=== PATIENT | female | born 1950 | race Caucasian/White ===

== ENCOUNTER 2017-07-16 07:05 | Emergency (ER) | payer OTHER ==
[2017-07-16 07:35] VITALS: BP 147/72
--- NOTE | 2017-07-16 08:09 | UC ---
Complaint Female HPI - HPI Summary HPI Summary: patient states she had intercourse yesterday and experienced scant vaginal bleeding this morning which resolved by itself. States it is not painful but has short lived "twinges". Denies any discharge. Denies history of STD. She had MOOSE in 2002. Currently on Xarelto for Afib, denies epistaxis, although she has occasional bruises. - History Of Current Complaint Chief Complaint: UCGU Stated Complaint: PERSONAL Time Seen by Provider: 07/16/17 07:44 Hx Obtained From: Patient ?: No Onset/Duration: Sudden Onset, Lasting Days Timing: Intermittent Severity Initially: Mild Severity Currently: Mild Pain Intensity: 2 Character: Not Applicable Aggravating Factor(s): [place] Alleviating Factor(s): Nothing Associated Signs And Symptoms: Positive: Negative - Risk Factors Ectopic Risk Factor: Negative Ovarian Torsion Risk Factor: Negative - Allergies/Home Medications Allergies/Adverse Reactions: Allergies Allergy/AdvReac Type Severity Reaction Status Date / Time MS Amoxicillin Allergy Unknown Verified 07/16/17 07:18 [From Augmentin] Reaction Details MS Atorvastatin Allergy Unknown Verified 07/16/17 07:18 [From Lipitor] Reaction Details MS Cefaclor [From Ceclor] Allergy Unknown Verified 07/16/17 07:18 Reaction Details MS Clarithromycin Allergy Unknown Verified 07/16/17 07:18 [From Biaxin] Reaction Details MS Clavulanic Acid Allergy Unknown Verified 07/16/17 07:18 [From Augmentin] Reaction Details MS Erythromycin Allergy Unknown Verified 07/16/17 07:18 [Erythromycin] Reaction Details MS Loratadine [From Claritin] Allergy Unknown Verified 07/16/17 07:18 Reaction Details MS Losartan [From Cozaar] Allergy Unknown Verified 07/16/17 07:18 Reaction Details MS Pseudoephedrine AdvReac Hallucinati Verified 07/16/17 07:18 [From Sudafed] ons Home Medications: Home Medications Flecainide TAB(NF) 1 tab PO TID 07/16/17 [History Confirmed 07/16/17] PMH/Surg Hx/FS Hx/Imm Hx Previously Healthy: Yes Endocrine History: Hypothyroidism, Dyslipidemia Cardiovascular History: Cardiac Disease, Hypertension, Atrial Fibrillation - Surgical History Surgical History: Yes Surgery Procedure, Year, and Place: 2008 THYROIDECTOMY. 2002 HYSTERECTOMY. 2007 [facility] - Family History Known Family History: Positive: Cardiac Disease - Mother, father - Social History Alcohol Use: None Substance Use Type: None Smoking Status (MU): Never Smoked Tobacco Have You Smoked in the Last Year: No - Immunization History Most Recent Influenza Vaccination: fall 2013 Most Recent Tetanus Shot: unknown Most Recent Pneumonia Vaccination: received, unknown Review of Systems Constitutional: Negative Genitourinary: Vaginal/Penile Pain All Other Systems Reviewed And Are Negative: Yes Physical Exam Triage Information Reviewed: Yes Appearance: Well-Appearing Vital Signs: Initial Vital Signs Temp 98.3 F 07/16/17 07:22 Pulse 59 07/16/17 07:22 Resp 16 07/16/17 07:22 BP 147/72 07/16/17 07:22 Pulse Ox 100 07/16/17 07:22 Vital Signs Reviewed: Yes Eyes: Positive: Conjunctiva Clear ENT: Positive: Hearing grossly normal Respiratory: Positive: No respiratory distress Cardiovascular: Positive: Pulses Normal, Brisk Capillary Refill Pelvic Exam: Positive: Speculum Exam Normal, Bimanual Exam Normal, No Masses, Other - small symmetrical abrasions approx 3mm in diameter on supero anterior aspect of both labia minora Complaint Female Dx - Course Course Of Treatment: abrasion found in labia minora, BATH STEWARD exam otherwise normal. Use of lubrication during intercourse d/w patient. - Differential Dx/Diagnosis Provider Diagnoses: Abrasion genitalia Discharge - Sign-Out/Discharge Documenting (check all that apply): Discharge/Admit/Transfer - Discharge Plan Condition: Good Disposition: HOME Patient Education Materials: Abrasion (ED) Referrals: Jan Terry MD [Primary Care Provider] - - Billing Disposition and Condition Condition: GOOD Disposition: HOME
== END 2017-07-16 08:12 | disposition home or self-care (01) ==
LOC: UCEAST 07:05
DX: S30.814A Abrasion of vagina and vulva, initial encounter (principal); X58.XXXA Exposure to other specified factors, initial encounter; Y93.89 Activity, other specified; Y92.9 Unspecified place or not applicable; E03.9 Hypothyroidism, unspecified; E78.5 Hyperlipidemia, unspecified; I48.91 Unspecified atrial fibrillation; Z79.01 Long term (current) use of anticoagulants; I10 Essential (primary) hypertension; Z95.0 Presence of cardiac pacemaker; Z90.710 Acquired absence of both cervix and uterus; Z88.1 Allergy status to other antibiotic agents; Z88.0 Allergy status to penicillin; Z88.8 Allergy status to other drugs, medicaments and biological substances
CPT/HCPCS: 99212; G0463

== ENCOUNTER 2017-09-09 23:27 | Observation (INO) | payer OTHER ==
--- NOTE | 2017-09-10 01:23 | ED ---
HPI Chest Pain - HPI Summary HPI Summary: Patient is a 67-year-old female with a pacemaker and a history of atrial fibrillation presents to the ED from [facility] with an episode of atrial fibrillation with RVR. Currently on amlodipine, metoprolol, Atacand and xarelto. 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 She endorses sharp pain to the left side of her anterior chest wall with associated shortness of breath. This improved until about one hour later when she began to feel ill, episode of diarrhea, nausea, vomiting, left sided chest pain returned with radiation to the left arm. She was started on an amiodarone drip at [place] and transferred here to the ED. Dr. Moran made aware of patient. On arrival she is in NSR and appears to be in no acute distress. He is asymptomatic on arrival. - History of Current Complaint Chief Complaint: EDGeneral Time Seen by Provider: 09/09/17 23:33 Hx Obtained From: Patient Onset/Duration: Started Hours Ago Timing: Constant Initial Severity: Moderate Current Severity: None Pain Intensity: 0 Pain Scale Used: 0-10 Numeric Chest Pain Location: Left Anterior Chest Pain Radiates: No Chest Pain Radiates To:: Shoulder, Arm Character: Sharp/Stabbing Aggravating Factor(s): Nothing Alleviating Factor(s): Nothing Associated Signs and Symptoms: Positive: Chest Pain - Risk Factors Pulmonary Embolism Risk Factors: Negative TAD Risk Factors: Negative - Additional Pertinent History Primary Care Physician: [id number] - Allergy/Home Medications Allergies/Adverse Reactions: Allergies Allergy/AdvReac Type Severity Reaction Status Date / Time amoxicillin [From Augmentin] Allergy Unknown Verified 09/10/17 02:30 Reaction Details atorvastatin [From Lipitor] Allergy Unknown Verified 09/10/17 02:30 Reaction Details cefaclor Allergy Unknown Verified 09/10/17 02:30 Reaction Details clarithromycin Allergy Unknown Verified 09/10/17 02:30 Reaction Details clavulanic acid Allergy Unknown Verified 09/10/17 02:30 [From Augmentin] Reaction Details erythromycin base Allergy Unknown Verified 09/10/17 02:30 Reaction Details losartan Allergy Unknown Verified 09/10/17 02:30 Reaction Details pseudoephedrine Allergy Hallucinati Verified 09/10/17 02:30 ons Home Medications: Home Medications Calcium Carbonate [Calcium Antacid] 430 mg PO 1800 09/10/17 [History Confirmed 09/10/17] Omeprazole CAP* [Prilosec CAP* 20 MG] 20 mg PO DAILY 09/10/17 [History Confirmed 09/10/17] PMH/Surg Hx/FS Hx/Imm Hx Previously Healthy: Yes Endocrine/Hematology History: Reports: Hx Thyroid Disease - CANCER Denies: Hx Diabetes Cardiovascular History: Reports: Hx Angina, Hx Hypercholesterolemia, Hx Hypertension, Hx Pacemaker/ICD, Other Cardiovascular Problems/Disorders - pacer Respiratory History: Reports: Hx Asthma Denies: Hx Chronic Obstructive Pulmonary Disease (COPD) GI History: Reports: Other GI Disorders - chronic diarrhea Denies: Hx Ulcer Sensory History: Reports: Hx Contacts or Glasses Opthamlomology History: Reports: Hx Contacts or Glasses - Cancer History Cancer Type, Location and Year: THYROID - 2008 Hx Chemotherapy: No Hx Radiation Therapy: Yes - THYROID - Surgical History Surgery Procedure, Year, and Place: 2008 THYROIDECTOMY. 2002 HYSTERECTOMY. 2007 [facility] - Immunization History Date of Tetanus Vaccine: NOT SURE Date of Influenza Vaccine: 2013 Hx Pertussis Vaccination: No Immunizations Up to Date: Unable to Obtain/Confirm Infectious Disease History: No Infectious Disease History: Reports: Hx Shingles Denies: Hx Clostridium Difficile, Hx Hepatitis, Hx Human Immunodeficiency Virus (HIV), Hx of Known/Suspected MRSA, Hx Tuberculosis, Hx Known/Suspected VRE , Hx Known/Suspected VRSA, History Other Infectious Disease, Traveled Outside the [place] in Last 30 Days - Family History Known Family History: Positive: Cardiac Disease - Mother, father - Social History Occupation: Unemployed Lives: With Family Alcohol Use: None Hx Substance Use: No Substance Use Type: Reports: None Hx Tobacco Use: No Smoking Status (MU): Never Smoked Tobacco Have You Smoked in the Last Year: No Review of Systems Constitutional: Negative Negative: Fever, Chills, Fatigue, Skin Diaphoresis Negative: Photophobia, Blurred Vision, Diplopia, Drainage Positive: Chest Pain Negative: Shortness Of Breath, Cough Negative: Abdominal Pain, Vomiting, Diarrhea, Nausea Musculoskeletal: Negative Skin: Negative Neurological: Negative Negative: Headache, Weakness, Paresthesia, Numbness All Other Systems Reviewed And Are Negative: Yes Physical Exam Triage Information Reviewed: Yes Vital Signs On Initial Exam: Initial Vitals Pulse Resp Pulse Ox 60 15 98 09/09/17 23:36 09/09/17 23:36 09/09/17 23:36 Vital Signs Reviewed: Yes Appearance: Positive: Well-Appearing, Well-Nourished Skin: Positive: Warm, Skin Color Reflects Adequate Perfusion Head/Face: Positive: Normal Head/Face Inspection Eyes: Positive: EOMI, Conjunctiva Clear Neck: Positive: Supple, No Lymphadenopathy Respiratory/Lung Sounds: Positive: Clear to Auscultation, Breath Sounds Present Cardiovascular: Positive: RRR - atrial paced rhythm, Pulses are Symmetrical in both Upper and Lower Extremities Musculoskeletal: Positive: Strength/ROM Intact Neurological: Positive: Alert, Oriented to Person Place, Time, Speech Normal Psychiatric: Positive: Affect/Mood Appropriate AVPU Assessment: Alert Diagnostics - Vital Signs Vital Signs Temp Pulse Resp BP Pulse Ox 09/10/17 00:00 60 13 96 09/09/17 23:40 98.3 F 60 18 147/50 96 09/09/17 23:37 61 19 147/50 98 09/09/17 23:36 60 15 98 - Laboratory Result Diagrams: 09/10/17 04:47 09/10/17 00:57 Lab Statement: Any lab studies that have been ordered have been reviewed, and results considered in the medical decision making process. Chest Pain Course/Dx - Course Course Of Treatment: During the course of treatment, EKG was obtained on arrival. EKG shows normal sinus rhythm. Troponin obtained. Labs are unremarkable. Discussed the case with the hospitalist. Amiodarone drip continued. Hospitalist agrees to come see patient in the ED. - Diagnoses Provider Diagnoses: Atrial fibrillation with RVR Discharge - Sign-Out/Discharge Documenting (check all that apply): Discharge/Admit/Transfer - Discharge Plan Condition: Fair Disposition: ADMITTED TO [facility] - Billing Disposition and Condition Condition: FAIR Disposition: Admitted to [facility]
[2017-09-10] MEDS ORDERED: Acetaminophen TAB* 325 MG PO PRN (02:39)
[2017-09-10] MEDS ORDERED: NS 0.9% 1000 ML* 1,000 ML IV SCH (02:45)
[2017-09-10] MEDS ORDERED: Amiodarone 360 MG IVPREMIX* 360 MG/200 ML BAG IV SCH (03:00)
[2017-09-10] MEDS ORDERED: Levothyroxine TAB* 25 MCG TAB PO SCH ×3 (05:00→06:00)
[2017-09-10] MEDS ORDERED: Levothyroxine TAB* 50 MCG TAB PO SCH (05:00)
[2017-09-10 05:01] LABS: ABS Basophils 0.1 10^3/ul (0-0.2); ABS Eosinophils 0.1 10^3/ul (0-0.6); ABS Monocytes 0.6 10^3/ul (0-0.8); ABS Neutrophils 5.9 10^3/ul (1.5-7.7); ABS Nucleated RBC 0 10^3/ul; Eosinophil % 0.6 % (0-6); Hematocrit 42 % (35-47); Hemoglobin 14.4 g/dl (12.0-16.0); Lymphocyte % 31.1 % (25-47); Mean Corpuscular HGB Conc 35 g/dl (31-36); Mean Corpuscular Hemoglobin 32 pg (27-31); Mean Corpuscular Volume 93 fL (80-97); Nucleated Red Blood Cells % 0; Platelet Count 187 10^3/ul (150-450); Red Blood Count 4.48 10^6/ul (4.00-5.40); Red Cell Distribution Width 13 % (10.5-15); White Blood Count 9.6 10^3/ul (3.5-10.8)
[2017-09-10 05:03] LABS: EGFR Non-African American 74.8 (>60)
[2017-09-10] MEDS ORDERED: Flecainide TAB* 100 MG PO SCH ×2 (06:00→18:00)
[2017-09-10] MEDS ORDERED: Metoprolol Tartrate TAB* 50 mg PO SCH ×2 (06:00→12:00)
--- NOTE | 2017-09-10 08:19 | HP ---
CC: Dr. Terry; Dr. Overton; Dr. Dumont * HISTORY AND PHYSICAL: DATE OF ADMISSION: 09/10/17. PRIMARY CARE PROVIDER: Dr. Terry. GINNING OPERATOR: Dr. Overton. HOLLOW WARE MAKER: Dr. Dumont. CHIEF COMPLAINT: Chest pain and arrhythmia. HISTORY OF PRESENT ILLNESS: Ms. Bolivar is a 67-year-old female, who has a history of paroxysmal atrial fibrillation, hypothyroidism, status post total thyroidectomy for thyroid cancer, hypertension, hyperlipidemia, and GERD, who initially presented to [facility] with complaints of chest pain. The patient states that she was at [facility] on the day prior to admission visiting with her son and grandchildren when she suddenly developed a sharp left-sided chest pain. She states that this was under her left breast. She states that it was there for a matter of seconds and then was gone. Following the chest pain, she did feel slightly short of breath for a little while. She sat down on the bench. When the shortness of breath went away, she got up to walk and felt like that she had to go to the bathroom. She tried to go and was unable to do so. She at approximately 6:15 p.m. on the day prior to admission did report an episode of loose stool. She subsequently had another episode of loose stool shortly thereafter. She also felt somewhat dizzy, had dry heaves, and felt tired. The patient indicates that when she is out in the sun, she will frequently get symptoms such as the diarrhea, dizziness, and nausea; however, because she had the sharp pain, she decided to present to the emergency room. While at [facility], the patient did also have an episode of burning chest discomfort under the left breast and in the left arm. This resolved within a matter of at most 5 minutes. Also at [facility], the patient was noted to be having runs of a wide complex tachycardia. This appeared to be a paced rhythm. The concern was for a ventricular tachycardia and because of that Dr. Moran was contacted, and the patient was ultimately transferred to [facility] for evaluation. The patient states that to some extent, symptoms she was feeling on the day prior to admission felt like it does when she goes into atrial fibrillation. PAST MEDICAL HISTORY: 1. Paroxysmal atrial fibrillation. 2. History of thyroid cancer. 3. Hypothyroidism, status post thyroidectomy. 4. Hypertension. 5. Hyperlipidemia. 6. Loya's esophagus. 7. JOSE - not treated. PAST SURGICAL HISTORY: 1. Permanent pacemaker. 2. Hysterectomy. 3. Thyroidectomy. MEDICATIONS: 1. Flecainide 50 mg p.o. q.a.m. and 100 mg p.o. at 1800. 2. [place] 3 fatty acid 1470 mg p.o. daily. 3. Levothyroxine 75 mcg p.o. daily. 4. Vitamin D 1000 units p.o. at 1800. 5. Flaxseed oil 2400 mg p.o. at 1800. 6. Calcium carbonate 450 mg p.o. at 1800. 7. Amlodipine 5 mg p.o. daily. 8. Omeprazole 20 mg p.o. daily. 9. Xarelto 20 mg p.o. daily. 10. Simvastatin 20 mg p.o. nightly. 11. Metoprolol tartrate 50 mg p.o. at 0600, 1400, and 2200. 12. Clarinex 5 mg p.o. daily. 13. Candesartan 32 mg p.o. daily. ALLERGIES: AUGMENTIN, LIPITOR, CEFACLOR, CLARITHROMYCIN, ERYTHROMYCIN, LOSARTAN , and PSEUDOEPHEDRINE. FAMILY HISTORY: Mom and dad both had coronary artery disease. SOCIAL HISTORY: The patient is a nonsmoker. She does not drink alcohol. 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 She is . She has 2 children. Her is her healthcare proxy. REVIEW OF SYSTEMS: A complete 11-system review of systems is obtained. Pertinent positives and negatives are as per HPI and otherwise negative. PHYSICAL EXAMINATION GENERAL: The patient is a well-developed, obese, middle-aged female, seen lying in the stretcher, in no acute distress. VITAL SIGNS: Blood pressure 147/50, pulse 60, respirations 18, temp 98.3, O2 sat 96% on room air. HEENT: Pupils are equal and round. Extraocular muscles are intact. Oropharynx is clear. Oral mucosa is moist. NECK: There is no submandibular, cervical or supraclavicular adenopathy. PULMONARY: Lungs are clear to auscultation bilaterally. CARDIAC: Normal S1, S2. Regular rate and rhythm. I do not appreciate any murmurs. There is trace bilateral lower extremity pitting edema. ABDOMEN: Bowel sounds are present. Abdomen is soft, nontender, nondistended. MUSCULOSKELETAL: There is no cyanosis or clubbing of the digits. There is full active range of motion of all 4 extremities. SKIN: Warm and dry. There are no rashes. NEURO: Cranial nerves II through XII are grossly intact. Sensation is intact to light touch throughout. Strength is 5/5 and symmetric in both upper and lower extremities bilaterally. PSYCH: The patient is alert. She is oriented x3. Affect appears appropriate. LABORATORY DATA: Labs at [facility] are pending. Labs from [facility] reveal sodium of 144, potassium 3.6, chloride 110, CO2 26, BUN 18, creatinine 0.9, glucose 104 , calcium 8.2, magnesium 2.2, albumin 3.9, AST 29, ALT 46, bilirubin 0.4, alkaline phosphatase 132. CPK is 78, troponin is less than 0.015, TSH 0.2. WBC 9.9, hemoglobin 15.7, hematocrit 45.4, platelets 188. Multiple EKGs sent from [facility] reveal at times an atrial paced rhythm versus atrial fibrillation versus what appears to be paced wide complex tachycardia. ASSESSMENT AND PLAN: Ms. Bolivar is a 67-year-old female with a history of paroxysmal atrial fibrillation, hypothyroidism following total thyroidectomy for thyroid cancer, hypertension, and hyperlipidemia, who presents to the emergency room with complaints of chest pain and was also found to have a wide complex tachycardia and was sent to [facility] for further evaluation. 1. Chest pain. The patient's initial troponin is negative. Subsequent troponin is pending at this time. I suspect the patient may have had chest discomfort related to going into atrial fibrillation. An echocardiogram will be obtained due to her arrhythmia. Further workup can follow. 2. Paced wide complex tachycardia. Differential diagnosis includes atrial fibrillation with aberrancy versus ventricular tachycardia, which seems much less likely. The patient was mildly symptomatic when she was in the wide complex tachycardia; however, this was quite minor. Atrial fibrillation seems to be the more likely etiology. She was started on amiodarone drip at [facility]. I will continue this for now but at 0.5 mg per minute. Cardiology consultation will need to be requested for further evaluation. The patient's pacemaker can also be interrogated. She will otherwise continue on her usual doses of flecainide, metoprolol tartrate, and Xarelto. As above, an echocardiogram will be obtained. Further evaluation will be per cardiology consultation. 3. Hypertension. The patient's blood pressure is under fair control. She will be maintained on her usual home medication regimen. 4. Hyperlipidemia. We will continue simvastatin. 5. Barrette's esophagus/gastroesophageal reflux disease. Continue omeprazole. 6. Hypothyroidism. The patient's TSH is low at 0.17 with an elevated free T4 of 1.17. I will reduce her Synthroid dose to 62.5 mg p.o. daily. She will need to follow up with Dr. Dumont for further management of her hypothyroidism. 7. Deep venous thrombosis prophylaxis. According to the Adult Thrombosis Prophylaxis Risk Factor Assessment guide, the patient has a total risk factor score of 6 making her the highest risk. She is already on Xarelto and this will act as her DVT prophylaxis. 8. Code status is full. TIME SPENT: Sixty-five minutes were spent admitting this patient. [id number]/CPS #: [id number] OFELIA
[2017-09-10] MEDS ORDERED: Levothyroxine TAB* 75 MCG TAB PO SCH (09:00)
[2017-09-10] MEDS ORDERED: amLODIPine TAB* 5 MG PO SCH (09:00)
--- NOTE | 2017-09-10 09:32 | PN ---
Subjective Date of Service: 09/10/17 Interval History: Pt usually has 3-4 loose BM's a a day due to being lactose intolerant and not following her diet "all the time". Also she frequently responds to overheating with dry hives and diarrhea. That happened yesterday when she was at a playground with her grandchildren. Suddenly she felt sharp pain in LUQ followed by dry hives and 6 loose BM's. At some point she had a burning sensation in LUQ and left arm that prompted her to home to [facility] for eval. There she was noted to be in wide ventricular tachy, but rhythm appeared to be paced.Started on amiodarone gtt and transferred to [facility] by pt's request since her car oiler (Dr. Overton) is here. Pt denies CP or SOB. Diarrhea resolved last night and had been tolerating PO diet Objective Active Medications: Acetaminophen (Tylenol Tab*) 650 mg PO Q4H PRN PRN Reason: PAIN Amlodipine Besylate (Norvasc Tab*) 5 mg PO DAILY [facility] Last Admin: 09/10/17 08:47 Dose: 5 mg Cholecalciferol (Vitamin D Tab*) 1,000 units PO 1800 [facility] Flecainide Acetate (Tambocor Tab*) 100 mg PO 1800 [facility] Flecainide Acetate (Tambocor Tab*) 50 mg PO 0600 [facility] Last Admin: 09/10/17 06:06 Dose: 50 mg Amiodarone HCl (Nexterone 360 Mg/200 Ml Ivpremix*) 360 mg in 200 mls @ 16.667 mls/hr IV .SEE PROTOCOL [facility] Last Admin: 09/10/17 04:15 Dose: 16.667 mls/hr Sodium Chloride (Ns 0.9% 1000 Ml*) 1,000 mls @ 100 mls/hr IV PER RATE [facility] Last Admin: 09/10/17 06:07 Dose: 100 mls/hr Levothyroxine Sodium (Synthroid Tab*) 12.5 mcg PO 0500 [facility] Last Admin: 09/10/17 04:59 Dose: 12.5 mcg Levothyroxine Sodium (Synthroid Tab*) 50 mcg PO 0500 [facility] Last Admin: 09/10/17 04:59 Dose: 50 mcg Metoprolol Tartrate (Lopressor Tab*) 50 mg PO 0600,1400,2200 [facility] Last Admin: 09/10/17 06:06 Dose: 50 mg Pto:Non Formulary ( Candesartan 32mg Tablet) 1 dose PO BEDTIME [facility] Omeprazole (Prilosec Cap*) 20 mg PO DAILY@2000 [facility] Rivaroxaban (Xarelto(*)) 20 mg PO DAILY@1800 [facility] Simvastatin (Zocor(Nf)) 20 mg PO BEDTIME [facility] Vital Signs - 8 hr 09/10/17 09/10/17 09/10/17 01:36 02:00 02:06 Temperature Pulse Rate 60 60 60 Respiratory 20 17 15 Rate Blood Pressure 133/91 135/87 (mmHg) O2 Sat by Pulse 97 95 99 Oximetry 09/10/17 09/10/17 09/10/17 02:36 02:58 03:00 Temperature Pulse Rate 60 60 60 Respiratory 15 14 16 Rate Blood Pressure 146/88 146/86 (mmHg) O2 Sat by Pulse 96 98 95 Oximetry 09/10/17 09/10/17 09/10/17 03:06 03:36 04:06 Temperature 98.3 F Pulse Rate 62 60 60 Respiratory 18 17 18 Rate Blood Pressure 131/68 125/77 131/78 (mmHg) O2 Sat by Pulse 90 94 97 Oximetry 09/10/17 09/10/17 09/10/17 04:08 04:31 04:32 Temperature 99.3 F Pulse Rate 60 60 60 Respiratory 15 15 20 Rate Blood Pressure 151/91 176/79 144/77 (mmHg) O2 Sat by Pulse 99 98 97 Oximetry 09/10/17 09/10/17 09/10/17 05:00 05:01 06:00 Temperature Pulse Rate 60 60 Respiratory 16 14 17 Rate Blood Pressure 133/74 116/69 (mmHg) O2 Sat by Pulse 98 93 Oximetry 09/10/17 09/10/17 09/10/17 07:00 07:01 07:45 Temperature 98.3 F Pulse Rate 60 60 Respiratory 16 16 Rate Blood Pressure 140/79 (mmHg) O2 Sat by Pulse 95 98 Oximetry 09/10/17 09/10/17 09/10/17 08:00 08:01 09:00 Temperature Pulse Rate 61 60 60 Respiratory 18 14 27 Rate Blood Pressure 137/74 153/94 (mmHg) O2 Sat by Pulse 95 97 98 Oximetry Oxygen Devices in Use Now: None Appearance: yo F in NAd, aAOx3 Eyes: No Scleral Icterus, PERRLA Ears/Nose/Mouth/Throat: NL Teeth, Lips, Gums, Mucous Membranes Moist Neck: NL Appearance and Movements; NL JVP, Trachea Midline Respiratory: Symmetrical Chest Expansion and Respiratory Effort, Clear to Auscultation Cardiovascular: NL Sounds; No Murmurs; No JVD, RRR Abdominal: NL Sounds; No Tenderness; No Distention Lymphatic: No Cervical Adenopathy Extremities: No Edema, No Clubbing, Cyanosis Skin: No Rash or Ulcers, No Nodules or Sclerosis Neurological: Alert and Oriented x 3, NL Muscle Strength and Tone Result Diagrams: 09/10/17 04:47 09/10/17 00:57 Microbiology and Other Data: Microbiology 09/10/17 04:47 Nasal Screen MRSA (PCR) - Final Nasal Mrsa Not Detected Assess/Plan/Problems-Billing Assessment: yo F with h/o PAF and SSS(S/p pacer) presented with N/D and left arm burning and wide ventricular/paced tachy on EKG - Patient Problems (1) Rapid atrial fibrillation Comment: Patient has h/o PAF - secondary to her acute on chronic diarrhea On amiodarone gtt, will hold flecainide when on amio cont lopressor (2) Wide QRS ventricular tachycardia Comment: back to paced rhythm now cont amiodarone gtt till seen by Dr. Moran Echo ordered (3) Hypothyroidism Comment: TSH low, will lower synthroid dose from 62.5 to 50 mcg (4) Left arm pain Comment: pt c/o transient left arm burning sensation in combination with burning sensation in LUQ abd and diarrhea. ? angina-less likely - troponin neg, will follow ? need of stress test(last on in 2016-neg for ischemia, EF 44%) (5) DVT prophylaxis Comment: xarelto Status and Disposition: inpatient
[2017-09-10 14:16] VITALS: BP 159/106
[2017-09-10] MEDS ORDERED: Rivaroxaban TAB(*) 20 MG TAB PO SCH (18:00)
[2017-09-10] MEDS ORDERED: Cholecalciferol TAB* 1000 UNITS PO SCH (18:00)
--- NOTE | 2017-09-10 19:03 | CONS ---
CC: Hospitalist; Dr. Nakul Overton; Dr. Jan Terry * CARDIOLOGY CONSULTATION: DATE OF CONSULT: 09/10/17 REASON FOR CONSULT: Wide complex tachycardia. HISTORY OF PRESENT ILLNESS: Ms. Bolivar is a 67-year-old woman, followed by Dr. Overton, with a pacemaker and history of paroxysmal atrial fibrillation. The patient was in her usual state of health yesterday, she and her were with their grand kids at [facility] and she suddenly developed a crampy discomfort that was sharp that she thought was indigestion. She was unable to have a bowel movement. She then felt well the rest of the day and then in the evening, around 6 o'clock, she took her usual medications and then felt acutely hot, nauseated with having dry heaves, followed by diarrhea. She just felt poorly and therefore went to the [facility]. While in the [facility], she was having hot flashes and just felt weak. In the [facility] Department, they did an EKG and found a wide complex tachycardia that they felt was ventricular tachycardia, polymorphic. No Cardiology coverage was available at [place] and the patient had requested transfer to here. The patient had been started on an amiodarone drip in the emergency department at [facility]. This was continued on transfer and the patient was admitted here to the ICU overnight and the amiodarone drip was continued. Labs also revealed her TSH was low and T3 was elevated and the hospitalist decreased her thyroid replacement overnight. Today, the patient is feeling back to normal. She has been on flecainide prior to this and she says she goes in and out of AFib, sometimes she will be in it several times a week and other times, she will go weeks without it. The GI complaints that she has had have been longstanding and recurrent since childhood and she says run in many members of her family and she has had GI workups in the past without any clear diagnosis. PAST MEDICAL HISTORY: 1. Paroxysmal atrial fibrillation for which she was on flecainide. 2. Sick sinus syndrome, with pacemaker. 3. I believe, thyroid cancer, she is status post thyroidectomy, now hypothyroid , on replacement. 4. Hypertension. 5. Dyslipidemia. 6. Loya's esophagus. 7. Obstructive sleep apnea, untreated. 8. Obese. PAST SURGICAL HISTORY: Includes: 1. Pacemaker implantation. 2. Thyroidectomy. 3. Hysterectomy. MEDICATIONS: Outpatient medications documented in Dr. Kamara's note include: 1. Flecainide 50 mg in a.m. and 100 mg q.h.s. 2. Metoprolol 50 mg t.i.d. 3. Xarelto 20 mg a day. 4. Simvastatin 20 mg a day. Current inpatient medications include: 1. Amiodarone drip. 2. Tylenol p.r.n. 3. Norvasc 5 mg a day. 4. Vitamin D. 5. Synthroid decreased to 50 mcg daily. 6. Lopressor 50 mg t.i.d. 7. Candesartan 32 mg q.h.s. 8. Prilosec 20 mg a day. 9. Xarelto 20 mg a day. 10. Simvastatin 20 mg a day. ALLERGIES: Include AUGMENTIN, LIPITOR, CEFACLOR, CLARITHROMYCIN, ERYTHROMYCIN, LOSARTAN, and PSEUDOEPHEDRINE. FAMILY HISTORY: Significant for GI cramping in multiple family members. Positive for coronary disease in both parents. SOCIAL HISTORY: The patient works at [employer]. , supportive , who is present with her. She is a nonsmoker. No alcohol intake or regular use. REVIEW OF SYSTEMS: Negative for recent fevers, chills, sweats, hematuria, dysuria. GI symptoms as outlined in the history of present illness, acutely yesterday. She denies any recent changes in sleep habits. No decline in functional ability until the events of yesterday, and all other 14-point review of systems were unremarkable. PHYSICAL EXAM: The patient is 5 feet 4 inches, weighs 212 pounds with a BMI of 37. Vital Signs: Currently blood pressure 153/94, pulse was 60 and regular, respiratory rate is 27, oxygen saturation on room air is 98%, and temperature was 98.3 at 8 this morning. General Appearance: Very overweight older woman, seated, in no acute distress. Psychologically, pleasant and cooperative. Neurologically, awake, alert, and oriented to person, place, and time. Cranial nerves II through XII intact. Grossly normal sensory and motor function in the upper and lower extremities and normal gait. Skin: Warm, dry. No cyanosis or rashes. Pacemaker site in the subclavian fossa well healed and unremarkable. HEENT: Pupils are equal and round. Mucous membranes moist. Neck: Thick from obesity. No increased JVP. Good carotid pulses without audible bruits. Lungs were clear with good effort. No wheezes, rales, or rhonchi. Coronary: S1, S2 , regular, distant. No murmurs or rubs. Abdomen: Overweight. Active bowel sounds. Soft, nontender. Lower extremities are free of edema and warm, but thick. DIAGNOSTIC STUDIES/LAB DATA: EKG in our emergency room shows an atrially paced rhythm, 60 beats a minute, [place] QRS, QRS axis of +15, normal intraventricular conduction time, some nonspecific T-wave flattening. EKGs and rhythm strips from [facility] are consistent with atrial fibrillation with [place] QRS alternating with a wide QRS complex, irregularly irregular with pacer spike consistent with AFib with a [place] QRS alternating with a paced AFib with a paced QRS. Labs from the [facility] ED reviewed showing sodium 137, potassium 3.9, chloride 104, bicarb 27, glucose 82, BUN 14, creatinine 0.83, magnesium 2.0. Total cholesterol 136, triglycerides 141, HDL cholesterol 41, LDL cholesterol 67 , SGPT 27. Pacemaker interrogation done by me did confirm she was in atrial fibrillation yesterday starting around 9 at night intermittently through 9:24 p.m., but intracardiac electrocardiograms were not available and it also confirmed that she has regular intermittent atrial fibrillation going back as far as 02/28/17 lasting as long as a day at a time. Labs at [facility] were reviewed. Sodium 141, potassium 4.0, BUN 16 , creatinine 0.77, glucose 110. TSH 0.17, free T4 1.17. Magnesium pending. Troponin #1 0.00. White count 9.6, hematocrit 42, platelets 187. IMPRESSION AND PLAN: In summary, Payal Bolivar is a 67-year-old woman with sick sinus syndrome and a pacemaker and history of paroxysmal atrial fibrillation, who had been on flecainide, relatively low dose. Yesterday, she had atypical chest pain in the morning followed by gastrointestinal symptoms, feeling poorly and weak, and found to be in atrial fibrillation. The ED in [place] was concerned about polymorphic ventricular tachycardia and therefore amiodarone was initiated, but this is in fact atrial fibrillation with ventricular tracking. I did a 12-lead ECG with a magnet here and compared it with her [facility] ECG, felt to be ventricular tachycardia and it confirmed that the QRS complex is the same as a paced rhythm. The patient's overreplacement of her thyroid could be contributing to her paroxysmal atrial fibrillation as well. I discussed the issues with the patient and her . They understand that amiodarone, although more efficacious, is not an ideal drug for somebody on thyroid replacement and as young as she is. She is anxious to stop it now understanding she may have more breakthrough and then follow up with Dr. Overton and decide on future antiarrhythmic management. The hospitalists have already decreased her thyroid replacement and she can follow up with her primary care physician for followup of Synthroid dosing for the future. In the interim, we will verify that her electrolytes have remained stable. We will continue her on Xarelto. The patient's blood pressure is a bit high. I suspect improvements could be made in diet and exercise regimen and additionally I am going to recommend we double her Norvasc and increase her metoprolol to 100 mg b.i.d. instead of 50 mg t.i.d. [id number]/[facility] #: [id number] [facility] SYSTEMAnita
[2017-09-10] MEDS ORDERED: Omeprazole CAP* 20 MG PO SCH (20:00)
[2017-09-10] MEDS ORDERED: CANDESARTAN 32 MG PO SCH (21:00)
[2017-09-10] MEDS ORDERED: CMCS:Simvastatin TAB(NF) 20 MG TAB PO SCH (21:00)
--- NOTE | 2017-09-10 21:05 | DS ---
ADDENDUM: CC: Dr. Dumont. [id number]/[facility] #: [id number] MTDD
--- NOTE | 2017-09-10 21:05 | CARD ---
CC: Dr. Nakul Overton * PACEMAKER INTERROGATION: DATE OF INTERROGATION: 09/10/17 - ROOM #ICU-10 PROCEDURE: Pacemaker interrogation. INDICATION: Wide complex tachycardia. SUMMARY: The patient has a [employer] XL DR 5826 with a serial number [id number]. Interrogation confirmed that she is programmed in dual-chamber rate response mode with a low rate of 60 beats per minute and an upper tracking rate of 130 beats per minute. The patient is predominantly atrially paced, ventricularly sensed (97% of the time) at the lower rate bin of 60 to 70 beats a minute. Rarely, she will pace higher at 70 to 80 beats a minute. Intracardiac electrocardiograms in the present confirmed atrial pacing with ventricular sensing. Reviewing dysrhythmias since February 2017, she has had multiple events. There were escalations in May of this year, but she has episodes every single month. Yesterday, 09/09/17, the patient was in and out of AFib from 9:07 p.m. to 9:24 p.m. Intracardiac electrograms of these events were unavailable. The atrial lead impedance was 342 ohms, ventricular lead impedance 463 ohms. Pacing and sensing thresholds not performed. CONCLUSIONS: [employer] dual-chamber pacemaker confirmed an episode of atrial fibrillation 9 to 9:30 last night. Intracardiac electrograms not available. Lead impedance is stable. Reprogramming was performed with detection for atrial tachycardia from previously programmed 180 beats a minute to 150 beats a minute. [id number]/[facility] #: [id number] [facility]ITALAnita
--- NOTE | 2017-09-10 21:32 | DS ---
CC ADDENDUM NOW INCLUDED ON THIS REPORT CC: Dr. Terry; Dr. Overton; Dr. Moran; Dr. Dumont.* DISCHARGE SUMMARY: DATE OF ADMISSION: 09/10/17 DATE OF DISCHARGE: 09/10/17 PRIMARY CARE PROVIDER: Dr. Terry. DISCHARGE DIAGNOSIS: An episode of wide complex tachycardia with questionable wide ventricular tachycardia versus paced atrial fibrillation. That occurred in conjunction with the patient's symptoms of dry heaving and nausea as well as diarrhea. MEDICATIONS AT DISCHARGE: Include: 1. Calcium carbonate 1 chewable daily. 2. Candesartan 32 mg daily. 3. Vitamin D3 1000 units daily. 4. Clarinex 5 mg daily. 5. Flaxseed oil 2400 mg daily. 6. Black [place]-3 fatty acids 1 capsule daily. 7. Omeprazole 20 mg daily. 8. Xarelto 20 mg daily. 9. Zocor 20 mg at bedtime. 10. Norvasc was increased to 10 mg daily. 11. Levothyroxine was decreased to 50 mcg daily from 75 mcg. 12. Metoprolol tartrate was increased to 100 mg b.i.d. from 50 mg 3 times a day. CONSULTATIONS DURING THE HOSPITAL STAY: Included Dr. Moran from Cardiology. LABORATORY DATA AND STUDIES PERFORMED DURING THE HOSPITAL STAY: Included: Troponin was 0 twice. The patient's TSH was 0.17, free T4 was 1.17. The patient's magnesium was 2. HOSPITALIZATION COURSE: Payal Bolivar is a 67-year-old female with history of sick sinus syndrome, status post pacemaker placement as well as paroxysmal atrial fibrillation, on Xarelto, flecainide, and metoprolol, who presented to the hospital after she felt a burning sensation in the left side of her abdomen as well as left arm. The patient stated that she usually responds to overheating with nausea, dry heaving, and diarrhea. When she was outside in a hot day, playing with her grandchildren at playground, she developed those symptoms. She stated that normally she would not come to the hospital, but due to left arm burning, she came in for cardiac evaluation. At [facility] where she arrived to, she was noted to have wide complex tachycardia and she was transferred to our facility for further evaluation. Apparently, there were no cardiology services at [facility]. The patient also is a patient of Dr. Overton and she wanted to be evaluated in the hospital with Dr. Overton or his associates who are present. The patient was placed on amiodarone drip and transferred to [facility]. She was admitted to our intensive care unit. She continued to be in a paced regular rhythm with a heart rate of 60. At this point, it was difficult to establish if the patient's wide complex tachycardia was atrial fibrillation that was being paced or wide ventricular tachycardia. Nevertheless, as per Dr. Moran's recommendation, flecainide was discontinued. Due to the patient's hypertension, her Norvasc and metoprolol doses were increased and changed. The patient's TSH was low and her Synthroid was decreased from 75 to 50 mcg daily. The patient is going to be discharged today to home with recommendation to follow up with Dr. Terry in approximately 4 to [address] Overton in approximately 1 to 2 weeks. PHYSICAL EXAM AT DISCHARGE: Unchanged from admission. [id number]/[facility] #: [id number] A- [id number]/[facility] #: [id number] OFELIA
[2017-09-11] MEDS ORDERED: amLODIPine TAB* 5 MG PO SCH (09:00)
== END 2017-09-10 16:30 | disposition home or self-care (01) ==
LOC: ED 23:27 → ICU 09-10 02:39 → INTOOBSV 09-10 02:39
PROVIDERS: ADMIT Hospitalist; ATTEND Internal Medicine
DX: R07.9 Chest pain, unspecified (principal); R00.0 Tachycardia, unspecified; E03.9 Hypothyroidism, unspecified; I48.0 Paroxysmal atrial fibrillation; Z79.01 Long term (current) use of anticoagulants; I10 Essential (primary) hypertension; E78.5 Hyperlipidemia, unspecified; K22.70 Barrett's esophagus without dysplasia; Z95.0 Presence of cardiac pacemaker; Z85.850 Personal history of malignant neoplasm of thyroid; Z79.899 Other long term (current) drug therapy; Z79.82 Long term (current) use of aspirin; Z88.8 Allergy status to other drugs, medicaments and biological substances; Z88.0 Allergy status to penicillin
CPT/HCPCS: 36415; 80053; 83735; 84439; 84443; 84484; 85025; 87641; 93005; 96365; 99285; A9270-GY; G0378; J0282

== ENCOUNTER 2018-08-30 07:02 | Emergency (ER) | payer OTHER ==
[2018-08-30 07:14] VITALS: BP 145/68
--- NOTE | 2018-08-30 07:43 | UC ---
General HPI - HPI Summary HPI Summary: Here with , concern for diarrhea x 4 days. States it varies with diarrhea - as in nonbloody no black loose stools every 1/2 to 1 hour. Has gone 4 times today. 8 times yesterday. Has been nauseated but no vomiting. A lot of gas and discomfort in epigastric and left upper quadrant region. Is tolerating fluids and trying to increase her intake. No chest pain or sob. States somewhat lightheaded. No sick contacts. Urinary symptoms two days ago that have since resolved. Last scope was in [address] Olmos - Polyps seen. Meds: Reviewed Has a pacemaker - History of Current Complaint Chief Complaint: UCGI Stated Complaint: DIARRHEA, AND ABDOMINAL DISCOMFORT Time Seen by Provider: 08/30/18 07:19 Pain Intensity: 6 - Allergy/Home Medications Allergies/Adverse Reactions: Allergies Allergy/AdvReac Type Severity Reaction Status Date / Time amoxicillin [From Augmentin] Allergy Unknown Verified 08/30/18 07:17 Reaction Details atorvastatin [From Lipitor] Allergy Unknown Verified 08/30/18 07:17 Reaction Details cefaclor Allergy Unknown Verified 08/30/18 07:17 Reaction Details clarithromycin Allergy Unknown Verified 08/30/18 07:17 Reaction Details clavulanic acid Allergy Unknown Verified 08/30/18 07:17 [From Augmentin] Reaction Details erythromycin base Allergy Unknown Verified 08/30/18 07:17 Reaction Details losartan Allergy Unknown Verified 08/30/18 07:17 Reaction Details pseudoephedrine Allergy Hallucinati Verified 08/30/18 07:17 ons celor Allergy Unknown Uncoded 08/30/18 07:17 Reaction Details triamt/hctz Allergy Unknown Uncoded 08/30/18 07:17 Reaction Details Home Medications: Home Medications Amlodipine Besylate [Norvasc] 2.5 mg PO DAILY 08/30/18 [History Confirmed ] Flecainide Acetate 100 mg PO BID 08/30/18 [History Confirmed 08/30/18] Replenex 1 tab PO DAILY 08/30/18 [History Confirmed 08/30/18] PMH/Surg Hx/FS Hx/Imm Hx Previously Healthy: No Cardiovascular History: Hypertension, Pacemaker/ICD, Atrial Fibrillation - Surgical History Surgical History: Yes Surgery Procedure, Year, and Place: 2008 THYROIDECTOMY. 2002 HYSTERECTOMY. 2007 PACEMAKER - Family History Known Family History: Positive: Cardiac Disease - Mother, father - Social History Alcohol Use: None Substance Use Type: None Smoking Status (MU): Never Smoked Tobacco Have You Smoked in the Last Year: No - Immunization History Most Recent Influenza Vaccination: [id number] season Most Recent Tetanus Shot: unknown Most Recent Pneumonia Vaccination: received, unknown Review of Systems All Other Systems Reviewed And Are Negative: Yes Gastrointestinal: Positive: Abdominal Pain, Diarrhea, Nausea Physical Exam Triage Information Reviewed: Yes Appearance: Well-Appearing Vital Signs: Initial Vital Signs Temp 97.9 F 08/30/18 07:07 Pulse 60 08/30/18 07:07 Resp 18 08/30/18 07:07 BP 145/68 08/30/18 07:07 Pulse Ox 97 08/30/18 07:07 Vital Signs Reviewed: Yes ENT: Positive: Normal ENT inspection Neck: Positive: Supple Respiratory: Positive: Lungs clear Cardiovascular: Positive: RRR, Other: - soft systolic murmur Abdomen Description: Positive: Other: - mild tenderness in epigastric and left upper quadrant region. No rebound or gaurding Bowel Sounds: Positive: Present Course/Dx - Course Course Of Treatment: This is a 68 yr old with afib and pacemaker here with diarrhea Assessment Nontoxic appearing Plan Continue bland diet and plenty of fluids. Eliminate diary then slowly re- introduce when symptoms improve If diarrhea continues recommend follow up with gastroenterology Recommend trial of a probiotic If symptoms persist or worsen, recommend follow up with your PCP or go to the ER We will contact you if your stool studies are abnormal - Diagnoses Provider Diagnosis: Gastroenteritis Discharge - Sign-Out/Discharge Documenting (check all that apply): Patient Departure All imaging exams completed and their final reports reviewed: No Studies - Discharge Plan Condition: Fair Disposition: HOME Patient Education Materials: Acute Diarrhea (ED) Referrals: Jan Terry MD [Primary Care Provider] - Additional Instructions: Continue bland diet and plenty of fluids. Eliminate diary then slowly re- introduce when symptoms improve If diarrhea continues recommend follow up with gastroenterology Recommend trial of a probiotic If symptoms persist or worsen, recommend follow up with your PCP or go to the ER We will contact you if your stool studies are abnormal - Billing Disposition and Condition Condition: FAIR Disposition: Home
== END 2018-08-30 07:56 | disposition home or self-care (01) ==
LOC: UCEAST 07:02
DX: K52.9 Noninfective gastroenteritis and colitis, unspecified (principal); Z95.0 Presence of cardiac pacemaker; Z88.0 Allergy status to penicillin; Z88.1 Allergy status to other antibiotic agents; I10 Essential (primary) hypertension; I48.91 Unspecified atrial fibrillation
CPT/HCPCS: 99211; G0463

== ENCOUNTER → 2018-12-17 07:25 | Day surgery (SDC) | payer MEDICARE, OTHER ==
[~2018-12-17 07:25] MED LIST: Clindamycin 600 MG/D5W BAG(*) 600 MG/50 ML BAG IV ONE; Diazepam TAB(*) 5 MG ONE; Diazepam TAB(*) 5 MG PO PRN; Flumazenil* 0.1 MG/ML 5 ML MDV ONE; Lidocaine 1% INJ* 10 MG/ML 30 ML SDV ONE; Midazolam* 1 MG/ML 5 ML VIAL (5 MG) ONE; Naloxone* 0.4 MG/ML 1 ML VIAL ONE; ceFAZolin 1 GM/10 ML flush(*) SYRINGE for pocket flush (cardiology) FLUSH ONE; ceFAZolin 2 GM in NS 100 ml - ONCE (Pharmacy Admix) IVPB ONE; fentaNYL* 50 MCG/ML 2 ML VIAL (100 MCG VIAL) ONE
[2018-12-17 10:37] VITALS: BP 145/110
--- NOTE | 2018-12-18 09:18 | OP ---
Amended report to correct date of operation. DATE OF OPERATION: 12/17/18 - [facility] CATH DATE OF : 50 SURGEON: Nakul Overton MD ANESTHESIA: Local anesthesia with conscious sedation. PRE-OP DIAGNOSES: Sick sinus syndrome, bradycardia, pacemaker elective replacement indicator. POST-OP DIAGNOSES: Sick sinus syndrome, bradycardia, pacemaker elective replacement indicator. OPERATIVE PROCEDURE: Dual-chamber pacemaker generator change. ESTIMATED BLOOD LOSS: Nil. COMPLICATIONS: None. INDICATIONS: The patient is a 68-year-old female with a history of sick sinus syndrome, history of pacemaker implantation in 2007. The patient has been followed in my office. The patient's pacemaker is elective replacement indicator, generator change is recommended. DESCRIPTION OF PROCEDURE: The patient was brought to procedure room in a fasting state. Informed consent had been obtained prior to procedure. All labs had been reviewed. The patient was placed supine on the procedure table. Her left deltopectoral area was cleaned and draped in the usual fashion. 1% lidocaine was used for local anesthesia. A 4 cm incision was made in the previous incision line and blunt dissection was carried down to the fiber sheath. The fiber sheath was opened and the generator was removed from the pocket. The generator was detached from the atrioventricular lead. A new generator was attached appropriately to the atrioventricular lead. The pocket was flushed. The generator was placed back into the pocket. The surgical incision was closed in 3 layers. The explanted pacemaker is a [employer] model 5826, serial number [id number]. The new implanted generator of the [employer] model [id number], serial number [id number]. Both atrioventricular leads were functioning normally. The patient tolerated the procedure well. There were no complications. [id number]/[facility] #: [id number] [facility]
== END | disposition home or self-care (01) ==
LOC: CHICATH 07:25
PROVIDERS: ATTEND Specialist
DX: Z45.010 Encounter for checking and testing of cardiac pacemaker pulse generator [battery] (principal); I49.5 Sick sinus syndrome; I48.0 Paroxysmal atrial fibrillation; I10 Essential (primary) hypertension; Z79.01 Long term (current) use of anticoagulants
CPT/HCPCS: 33228; 88300; 99156; A9270-GY; C1785; J0690; J2250; J2310; J3010